=== PATIENT | female | born 1980 | race African-American/Black ===

== ENCOUNTER 2021-07-14 16:24 | Emergency (ER) | payer OTHER ==
[~2021-07-14] VITALS: Ht 152.4 cm; Wt 97.5 kg
[~2021-07-14 16:24] MED LIST: BIRTH CONTROL; LISINOPRIL5 MG PO; MEDROLDOSEPACK PO; METFORMIN HCL500 MG PO; METHADONE HCL40 MG PO; NORCO 5-325 TA1 EACH PO; PERCOCET PO; VALIUM2 MG PO; ZOFRAN4 MG PO
[2021-07-14 19:32] VITALS: BP 000/00
== END 2021-07-14 19:33 | disposition left against medical advice (07) ==
LOC: ER 16:24
PROVIDERS: Physician Assistant
DX: R06.02 Shortness of breath (principal); Z53.21 Procedure and treatment not carried out due to patient leaving prior to being seen by health care provider